=== PATIENT | male | born 1980 | race Hispanic/Latino ===

== ENCOUNTER 2017-08-11 23:46 | Emergency (ER) | payer OTHER ==
[2017-08-11 23:56] VITALS: BP 108/77; PULSE 78; RESP 18; TEMP 98.8; O2SAT 98
[2017-08-12] MEDS ORDERED: Sodium Chloride 0.9% 1,000 ML IV STA (00:47)
[2017-08-12 01:09] LABS: BASO % 0.3 % (0.0-2.0); EOS # 0.1 K/uL (0.0-0.7); EOS % 1.7 % (0.0-4.0); HEMATOCRIT 37.6 % (35.0-51.0); LYMPH # 1.1 K/uL (1.0-4.3); MEAN CELL VOLUME 82.2 fl (80.0-94.0); MEAN CORPUSCULAR HEMOGLOBIN 27.7 pg (27.0-31.0); MEAN CORPUSCULAR HGB CONC 33.7 g/dL (33.0-37.0); MEAN PLATELET VOLUME 8.9 fl (7.2-11.7); MONO # 0.7 K/uL (0.0-0.8); MONO % 7.5 % (0.0-10.0); NEUT # 6.9 K/uL (1.8-7.0); NEUT % 77.5 % (50.0-75.0); NRBC % 0.1 % (0.0-0.0); RED CELL DISTRIBUTION WIDTH 12.6 % (11.5-14.5); WHITE BLOOD COUNT 8.8 K/uL (4.8-10.8)
--- NOTE | 2017-08-12 01:12 | ED PDOC ---
HPI: Chest Pain Time Seen by Provider: 08/12/17 00:31 Chief Complaint (Nursing): Chest Pain History Per: Patient History/Exam Limitations: no limitations Additional Complaint(s): 37 y/o M c/o chest pain that began 3 days ago. Chest pain is described as pressure/sharp feeling, intermittent, bilaterally, radiates to posterior neck, aggravated with movement, sitting down and lying down laterally. Pt reports headache, chills and fever, highest 101 degF yesterday. Pt flew to [place] a few days ago. Pt has been taking OTC Tylenol with mild improvement. Pt denies visual disturbances, sore throat, nasal congestion, cough, palpitations, abdominal pain, nausea, diarrhea or rash. NKDA Medications: none PMHx: denied PSHx: denied FHx: NC SHx: denied tobacco, alcohol or rec drugs. - Risk Factors PE Risk Factors: Neg: Extremity Immobilization/Fx, Recent Major Surgery, Previous DVT, Previous PE, CHF, Venous Stasis Past Medical History Vital Signs: Last Vital Signs Temp 98.8 F 08/11/17 23:53 Pulse 78 08/11/17 23:53 Resp 18 08/11/17 23:53 BP 108/77 08/11/17 23:53 Pulse Ox 98 08/12/17 02:26 - Medical History PMH: No Chronic Diseases - Surgical History Surgical History: No Surg Hx - Family History Family History: States: No Known Family Hx - Social History Current smoker - smoking cessation education provided: No Ex-Smoker (has not smoked in the last 12 months): No Alcohol: None Drugs: Denies - Home Medications Home Medications: Ambulatory Orders Medication Instructions Recorded Albuterol HFA [Ventolin HFA 90 1 - 2 puff IH Q6 PRN #1 inhaler 08/12/17 mcg/actuation (8 g)] Naproxen [Naprosyn] 500 mg PO Q12 #14 tab 08/12/17 - Allergies Allergies/Adverse Reactions: Allergies Allergy/AdvReac Type Severity Reaction Status Date / Time No Known Allergies Allergy Verified 08/11/17 23:53 CHARLETTE Risk Score for UA/NSTEMI - CHARLETTE Risk Score Age > 64: NO 3 or more CAD Risk Factors: NO Known CAD (Stenosis greater than 50%): NO Aspirin use in past 7 days: NO Severe Angina: NO EKG ST changes greater than 0.5mm: NO CHARLETTE Score: 0 Risk %: 5% Curb-65 Severity Score - CURB-65 Severity Score Confusion: No Respiratory Rate greater than/equal to 30: No Systolic BP <90 or Diastolic BP less than/equal 60mmHg: No Age >64: No Curb-65 Score: 0 Percentage 30-day mortality: 0.6% Wells Criteria for PE - Wells Criteria for Pulmonary Embolism Clinical Signs and Symptoms of DVT: No Heart Rate >100: No Immobilization at least 3 days;Surgery previous 4 weeks: No Previous, objectively diagnosed PE or DVT: No Hemoptysis: No Malignancy w/treatment within 6 months, or palliative: No Total Score: 0 Review of Systems Review Of Systems: ROS cannot be obtained secondary to pt's inabilty to answer questions. Constitutional: Positive for: Fever, Chills. Negative for: Sweats ENT: Negative for: Ear Pain, Nose Congestion, Throat Pain Cardiovascular: Positive for: Chest Pain. Negative for: Palpitations, Orthopnea Respiratory: Negative for: Cough, Shortness of Breath, Hemoptysis Gastrointestinal: Negative for: Nausea, Vomiting, Abdominal Pain, Diarrhea Musculoskeletal: Positive for: Neck Pain Skin: Negative for: Rash Neurological: Negative for: Weakness, Numbness, Confusion Psych: Negative for: Anxiety Physical Exam - Reviewed Vital Signs Reviewed: Yes - Physical Exam Appears: Positive for: Well, Uncomfortable Head Exam: Positive for: ATRAUMATIC, NORMAL INSPECTION, NORMOCEPHALIC Eye Exam: Positive for: Normal appearance, EOMI, PERRL ENT: Positive for: Normal ENT Inspection. Negative for: Pharyngeal Erythema, Tonsillar Exudate, Tonsillar Swelling Neck: Positive for: Normal, Supple Cardiovascular/Chest: Positive for: Regular Rate, Rhythm. Negative for: Friction Rub Respiratory: Positive for: Normal Breath Sounds (unable for deep inspitation due to pain.) Gastrointestinal/Abdominal: Positive for: Normal Exam, Bowel Sounds, Soft. Negative for: Tenderness Neurologic/Psych: Positive for: Alert, Oriented - Laboratory Results Result Diagrams: 08/12/17 01:00 08/12/17 01:00 - ECG O2 Sat by Pulse Oximetry: 98 Medical Decision Making Medical Decision Makin37 y/o M with chest pain. Plan: --EKG --CBC --CMP --Troponin --Coagulation profile --Chest X ray --Rapid Influenza A/B --IV NSS 0.9% --Toradol 01:00 EKG unremarkable. 02:00 Pt reports chest pain improved, but still feels the pain. Chest X-ray unremarkable. Blood analysis unremarkable, influenza A/B negative. Pt afebrile and tolerating PO. Pt will be discharged, Naproxen and Albuterol prescribed. Pt instructed to return if NO improvement. Disposition - Clinical Impression Clinical Impression: Pleuritic chest pain, Viral syndrome - Patient ED Disposition Is Patient to be Admitted: No - Disposition Referrals: [facility] [Outside] Jameson Jimenez MD [Emergency Midlevel Provider] - Disposition: Routine/Home Disposition Time: 02:20 Condition: STABLE Prescriptions: Albuterol HFA [Ventolin HFA 90 mcg/actuation (8 g)] 1 - 2 puff IH Q6 PRN #1 inhaler PRN Reason: Shortness Of Breath Naproxen [Naprosyn] 500 mg PO Q12 #14 tab Instructions: Pleurisy (ED) Forms: [employer] (Citizen [place])
[2017-08-12 01:19] LABS: ALB/GLOB RATIO 1.4 (1.0-2.1); ALKALINE PHOSPHATASE 46 U/L (38-126); ALT/SGPT 35 U/L (21-72); AST/SGOT 31 U/L (17-59); BILIRUBIN,TOTAL 0.4 mg/dl (0.2-1.3); BLOOD UREA NITROGEN 19 mg/dl (9-20); CALCIUM 8.4 mg/dL (8.4-10.2); CARBON DIOXIDE 29 mmol/L (22-30); CHLORIDE 99 mmol/L (98-107); GFR AFRICAN-AMERICAN > 60; GLUCOSE,RANDOM 100 mg/dL (75-110); POTASSIUM 3.3 MMOL/L (3.6-5.0); SODIUM 140 mmol/l (132-148); TOTAL PROTEIN 7.2 G/DL (6.3-8.2)
[2017-08-12 01:28] LABS: PARTIAL THROMBOPLASTIN TIME 30.9 Seconds (25.6-37.1)
--- NOTE | 2017-08-12 08:51 | RAD ---
HISTORY: chest pain COMPARISON: No prior. FINDINGS: LUNGS: No active pulmonary disease. PLEURA: No significant pleural effusion identified, no pneumothorax apparent. CARDIOVASCULAR: Normal. OSSEOUS STRUCTURES: No significant abnormalities. VISUALIZED UPPER ABDOMEN: Normal. OTHER FINDINGS: None. IMPRESSION: No active disease.
--- NOTE | 2017-08-12 12:08 | CARD ---
APPROVED REPORT EKG Measurement Heart [id number] <Conclusion> Normal sinus rhythm Normal ECG
== END 2017-08-12 02:21 | disposition home or self-care (01) ==
LOC: H.ER 23:46
DX: R07.1 Chest pain on breathing (principal); B34.9 Viral infection, unspecified
CPT/HCPCS: 71010; 80053; 84484; 85025; 85610; 85730; 87804; 93005; 96360; 99282; J1885; J7040